=== PATIENT | male | born 1995 | race Caucasian/White ===

== ENCOUNTER 2019-01-24 08:12 | Emergency (ER) | payer OTHER ==
[~2019-01-24] VITALS: Ht 188 cm; Wt 111.3 kg
[2019-01-24] MEDS ORDERED: GI COCKTAIL 50ML BTL(HYOSCYAMINE/MAALOX/LIDOCAINE VISCOUS)(1:3:1) PO ONE (09:15)
[2019-01-24 09:43] LABS: BASO # 0.1 10^3/uL (0.0-0.2); BASO % 1.4 % (0.0-1.0); EOS # 0.1 10^3/uL (0.0-0.5); EOS % 2.4 % (0.0-3.0); HEMATOCRIT 49.5 % (42.0-52.0); HEMOGLOBIN 16.5 g/dl (13.5-17.5); LYMPH # 1.6 10^3/uL (1.5-5.0); LYMPH % 27.1 % (24.0-44.0); MEAN CORPUSCULAR HEMOGLOBIN 30.3 pg (27.0-33.0); MEAN CORPUSCULAR HGB CONC 33.3 g/dl (32.0-36.5); MEAN CORPUSCULAR VOLUME 90.8 fl (80.0-96.0); MONO # 0.7 10^3/uL (0.0-0.8); MONO % 11.6 % (0.0-5.0); NEUTROPHILS # 3.3 10^3/uL (1.5-8.5); NEUTROPHILS % 57.2 % (36.0-66.0); PLATELET COUNT, AUTOMATED 249 10^3/uL (150-450); RED BLOOD COUNT 5.45 10^6/uL (4.30-6.10); WHITE BLOOD COUNT 5.8 10^3/uL (4.0-10.0)
[2019-01-24 10:12] LABS: ALBUMIN 4.2 GM/DL (3.2-5.2); ALT/SGPT 29 U/L (12-78); AMYLASE 49 U/L (25-115); BILIRUBIN,DIRECT 0.2 MG/DL (0.0-0.2); BILIRUBIN,TOTAL 0.9 MG/DL (0.2-1.0); BLOOD UREA NITROGEN 11 MG/DL (7-18); CALCIUM LEVEL 8.7 MG/DL (8.5-10.1); CARBON DIOXIDE LEVEL 27 MEQ/L (21-32); CHLORIDE LEVEL 105 MEQ/L (98-107); CREATININE FOR GFR 1.06 MG/DL (0.70-1.30); GLOMERULAR FILTRATION RATE > 60.0 (>60); GLUCOSE, FASTING 90 MG/DL (70-100); LIPASE 148 U/L (73-393); POTASSIUM SERUM 4.4 MEQ/L (3.5-5.1); SODIUM LEVEL 138 MEQ/L (136-145); TOTAL PROTEIN 7.5 GM/DL (6.4-8.2)
[2019-01-24] MEDS ORDERED: KETOROLAC 30 MG/ML VIAL (J1885) IV ONE (11:15)
--- NOTE | 2019-01-24 11:54 | REP ---
Acute abdominal series three views including PA chest and supine upright abdomen: There are no comparisons. PA chest: The lung greenberg are clear. The cardiac size is normal. The adriana, mediastinum, and skeletal structures are unremarkable. There is no free subdiaphragmatic air. Impression: Negative PA chest. Supine upright abdomen: The bowel gas pattern is normal. There are no calcifications. The skeletal structures and soft tissues otherwise are unremarkable. Impression: Normal bowel gas pattern. Electronically Signed by Hans Jefferson MD 01/24/2019 11:45 A
[2019-01-24] MEDS ORDERED: PROT1TAB2 PO (11:58)
[2019-01-24] MEDS ORDERED: CARA1TAB6 PO (11:58)
[2019-01-24] MEDS ORDERED: PANTOPRAZOLE 40MG TAB (PROTONIX) PO ONE (12:00)
--- NOTE | 2019-01-24 12:24 | REP ---
RIGHT UPPER QUADRANT ULTRASOUND: Real-time sonographic evaluation of the right upper quadrant performed. Gallbladder demonstrates no evidence of intraluminal sludge or calculi, wall thickening or pericholecystic fluid. There is no intrahepatic or extrahepatic biliary dilatation, common bile duct measuring 3 mm. Liver and pancreas demonstrate no gross mass. Pancreas is not optimally seen due to overlying bowel gas. Right kidney demonstrates no hydronephrosis with normal size 12.2 cm in length. IMPRESSION: Essentially negative right upper quadrant ultrasound. Electronically Signed by Hans Perez MD 01/25/2019 09:21 A
[2019-01-24 12:36] VITALS: BP 129/76
== END 2019-01-24 12:59 | disposition home or self-care (01) ==
LOC: M ED 08:12
DX: K52.9 Noninfective gastroenteritis and colitis, unspecified (principal)
CPT/HCPCS: 74021; 76705; 80048; 80076; 82150; 83690; 85025; 96374; 99284; J1885

== ENCOUNTER 2019-05-01 09:50 | Emergency (ER) | payer OTHER ==
[~2019-05-01] VITALS: Ht 188 cm; Wt 113.6 kg
[~2019-05-01 09:50] MED LIST: CARA1TAB6 PO; PROT1TAB2 PO
--- NOTE | 2019-05-01 12:08 | REP ---
SCROTAL ULTRASOUND: Real-time sonographic evaluation of the scrotum and contents performed. The testicles are normal in size and echotexture, right testicle measuring 5.4 x 2.7 x 3.1 cm and left testicle 5.4 x 2.4 x 3.3 cm. There is no suspicious testicular mass. Complex cyst in the upper aspect of the right testicle is of doubtful significance measuring 2 x 4 x 2 mm. There is no torsion bilaterally, resistive index right testicle 0.53 and left testicle 0.57. There are no other significant abnormalities. The epididymis is unremarkable bilaterally with an apparent 1 mm cyst in the head of the left epididymis. IMPRESSION: No suspicious testicular mass and no testicular torsion. 4 mm complex cyst right testicle. Electronically Signed by Hans Perez MD 05/01/2019 05:37 P
[2019-05-01] MEDS ORDERED: cefTRIAXone SOD 250 MG VIAL (J0696) IM ONE (12:45)
[2019-05-01] MEDS ORDERED: LIDOCAINE 1% SDV 5 ML VIAL DILUENT ONE (12:45)
[2019-05-01] MEDS ORDERED: AZITHROMYCIN 250 MG TAB PO ONE (12:45)
[2019-05-01 12:52] LABS: CHLAMYDIA DNA AMPLIFICATION NEGATIVE (NEGATIVE); GC DNA AMPLIFICATION NEGATIVE (NEGATIVE)
[2019-05-01 13:08] VITALS: BP 142/63
== END 2019-05-01 13:10 | disposition home or self-care (01) ==
LOC: M ED 09:50
DX: N34.1 Nonspecific urethritis (principal); N44.2 Benign cyst of testis
CPT/HCPCS: 76870; 81001; 87661; 93976; 96372; 99283; J0696

== ENCOUNTER 2019-08-03 00:12 | Inpatient (IN) | payer OTHER ==
[2019-08-03] VITALS (9 sets, daily range): BP systolic 130–156; BP diastolic 63–81
[~2019-08-03] VITALS: Ht 188 cm; Wt 129.5 kg
[2019-08-03 00:27] LABS: BASO # 0.1 10^3/uL (0.0-0.2); BASO % 0.8 % (0.0-1.0); EOS # 0.1 10^3/uL (0.0-0.5); EOS % 1.1 % (0.0-3.0); HEMATOCRIT 44.2 % (42.0-52.0); HEMOGLOBIN 15.1 g/dl (13.5-17.5); LYMPH # 3.5 10^3/uL (1.5-5.0); LYMPH % 47.8 % (24.0-44.0); MEAN CORPUSCULAR HEMOGLOBIN 29.8 pg (27.0-33.0); MEAN CORPUSCULAR HGB CONC 34.2 g/dl (32.0-36.5); MEAN CORPUSCULAR VOLUME 87.4 fl (80.0-96.0); MONO # 0.5 10^3/uL (0.0-0.8); MONO % 6.5 % (0.0-5.0); NEUTROPHILS # 3.2 10^3/uL (1.5-8.5); NEUTROPHILS % 43.7 % (36.0-66.0); PLATELET COUNT, AUTOMATED 259 10^3/uL (150-450); RED BLOOD COUNT 5.06 10^6/uL (4.30-6.10); WHITE BLOOD COUNT 7.4 10^3/uL (4.0-10.0)
[2019-08-03] MEDS ORDERED: ceFAZolin 1GM VIAL (J0690 PER 500MG) As Ordered ONE (00:28)
[2019-08-03] MEDS ORDERED: ceFAZolin SOD 2 GM in IV 1 EA IV ONE (00:30)
[2019-08-03 00:37] LABS: INR 1.03; PROTHROMBIN TIME 13.2 SECONDS (11.8-14.0)
[2019-08-03 00:38] LABS: PARTIAL THROMBOPLASTIN TIME 25.4 SECONDS (25.0-38.4)
[2019-08-03] MEDS ORDERED: ISOVUE-370 76% 100ML VIAL As Ordered ONE (00:41)
[2019-08-03 00:46] LABS: ALT/SGPT 29 U/L (12-78); AMYLASE 39 U/L (25-115); BILIRUBIN,DIRECT 0.2 MG/DL (0.0-0.2); BILIRUBIN,TOTAL 0.4 MG/DL (0.2-1.0); BLOOD UREA NITROGEN 13 MG/DL (7-18); CALCIUM LEVEL 8.3 MG/DL (8.5-10.1); CARBON DIOXIDE LEVEL 26 MEQ/L (21-32); CHLORIDE LEVEL 107 MEQ/L (98-107); CK-MB VALUE MASS 2.4 NG/ML (<3.6); CPK CREATINE PHOSPHOKINASE 225 U/L (39-308); CREATININE FOR GFR 1.25 MG/DL (0.70-1.30); ETHYL ALCOHOL (ETHANOL) 0.212 % (0.000-0.010); GLOMERULAR FILTRATION RATE > 60.0 (>60); GLUCOSE, FASTING 109 MG/DL (70-100); LIPASE 84 U/L (73-393); MB/CK RELATIVE INDEX 1.07 (< OR =4); POTASSIUM SERUM 3.8 MEQ/L (3.5-5.1); SODIUM LEVEL 141 MEQ/L (136-145); TOTAL PROTEIN 7.2 GM/DL (6.4-8.2); TROPONIN I < 0.02 NG/ML (< 0.10)
[2019-08-03] MEDS ORDERED: fentaNYL 100 MCG/2 ML INJECTION (J3010) As Ordered ONE ×2 (01:09→02:16)
[2019-08-03] MEDS ORDERED: MIDAZOLAM INJ 2MG/2ML VIAL (J2250 PER 1MG) As Ordered ONE (01:09)
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
[2019-08-03] MEDS ORDERED: LIDOCAINE 2% 100MG/5ML SDV (FOR ANES.) As Ordered ONE (01:11)
[2019-08-03] MEDS ORDERED: VASOPRESSIN INJ 20 UNITS/ML VIAL As Ordered ONE (01:35)
[2019-08-03] MEDS ORDERED: ROCURONIUM BROMIDE 50 MG/5 ML VIAL As Ordered ONE (01:39)
[2019-08-03] MEDS ORDERED: propofoL 200 MG/20 ML VIAL As Ordered ONE (01:40)
[2019-08-03] MEDS ORDERED: CALCIUM CHLORIDE 10% 1 GM/10 ML SYR As Ordered ONE (01:40)
[2019-08-03] MEDS ORDERED: SUCCINYLCHOLINE 100 MG/5 ML SYRINGE (J0330) As Ordered ONE (01:40)
[2019-08-03] MEDS ORDERED: ePHEDrine SULFATE 25 MG/5 ML(5MG/ML) SYRINGE As Ordered ONE (01:59)
[2019-08-03] MEDS ORDERED: PHENYLephrine HCL 500 MCG/5 ML (100MCG/ML) SYRINGE (J2370) As Ordered ONE (01:59)
[2019-08-03] MEDS ORDERED: ACETAMINOPHEN 1000MG 100ML IV BTL (OFIRMEV) (J0131 PER 10MG) As Ordered ONE (02:09)
[2019-08-03] MEDS ORDERED: ONDANSETRON 4MG/2ML VIAL As Ordered ONE (02:11)
[2019-08-03] MEDS ORDERED: KETOROLAC 60 MG/2 ML VIAL As Ordered ONE (02:11)
[2019-08-03] MEDS ORDERED: dexameTHASONE 4 MG/ML 1ML VIAL (J1100 PER 1MG) As Ordered ONE (02:11)
[2019-08-03] MEDS ORDERED: oxyCODONE 5MG TAB PO PRN (02:15)
[2019-08-03] MEDS ORDERED: ONDANSETRON 4MG/2ML VIAL IV PRN ×2 (02:15→02:30)
[2019-08-03] MEDS ORDERED: LR 1,000 ML IV SCH (02:15)
[2019-08-03] MEDS ORDERED: fentaNYL 100 MCG/2 ML INJECTION (J3010) IV PRN (02:15)
[2019-08-03] MEDS ORDERED: SUGAMMADEX SODIUM 500 MG/5 ML VIAL (BRIDION) As Ordered ONE (02:17)
[2019-08-03] MEDS ORDERED: D5W/LR 1,000 ML IV SCH (02:22)
[2019-08-03] MEDS ORDERED: NORCO, ANEXSIA 5/325MG TABLET (HYDROcodone/ACETAMINOPHEN) PO PRN ×2 (02:30)
[2019-08-03] MEDS ORDERED: ACETAMINOPHEN TAB 650MG DOSE (2X325MG) PO PRN (02:30)
[2019-08-03] MEDS ORDERED: MORPHINE 2 MG/ML 1ML VIAL (J2270) IV PRN (02:30)
[2019-08-03] MEDS ORDERED: oxyCODONE 5MG TAB As Ordered ONE (03:35)
[2019-08-03] MEDS ORDERED: HYDROMORPHONE HCL 0.5 MG/ 0.5 ML SYRINGE (J1170 PER 1) As Ordered ONE (03:35)
[2019-08-03] MEDS: HYDROMORPHONE HCL 0.5 MG/ 0.5 ML SYRINGE (J1170 PER 1) IV PRN ×2 (03:38→03:44)
[2019-08-03 03:59] LABS: HEMATOCRIT 39.1 % (42.0-52.0); HEMOGLOBIN 13.2 g/dl (13.5-17.5); MEAN CORPUSCULAR HEMOGLOBIN 30.1 pg (27.0-33.0); MEAN CORPUSCULAR HGB CONC 33.8 g/dl (32.0-36.5); MEAN CORPUSCULAR VOLUME 89.1 fl (80.0-96.0); PLATELET COUNT, AUTOMATED 180 10^3/uL (150-450); RED BLOOD COUNT 4.39 10^6/uL (4.30-6.10); WHITE BLOOD COUNT 9.1 10^3/uL (4.0-10.0)
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
[2019-08-03] MEDS: PANTOPRAZOLE 40MG TAB (PROTONIX) PO SCH (09:12)
[2019-08-03] MEDS: KETOROLAC 30 MG/ML 1ML VIAL IV SCH ×3 (09:12→20:39)
[2019-08-03] MEDS: ceFAZolin SOD 1 GM in D5W MINI-BAG PLUS 50 ML IV SCH ×2 (09:13→17:23)
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
--- NOTE | 2019-08-03 13:03 | IPN ---
DATE: 08/03/2019 The patient was operated on in the middle of the night and has been doing well, has been stable hemodynamically as well as from an intake and output standpoint, and hematocrit was down a little bit this morning but overall seems to be doing quite well. He is still uncomfortable when he gets up and moves around, but otherwise has been tolerating a regular diet and no other complaints. His abdomen is soft. His flank area is clean and dry. IMPRESSION/PLAN: The patient is status post laceration. I do feel that we need to have him get up and move around a little bit more over the day. Will probably get him out of the hospital tomorrow with some oral pain medication and we will have him take it easy for the next couple weeks. I anticipate, given that this was not specifically involving muscle, that he should be able to return to normal activity sooner than if it had, had specifically gone through the muscle, but given that it was quite deep it still will take a him a little while to get over this. In any case, the patient understands our current plan and will try get up and move around a little bit more today.
[2019-08-03] MEDS: MORPHINE 4 MG/ML 1ML VIAL/SYRINGE (J2270) IV PRN ×2 (13:11→20:43)
[2019-08-04] MEDS: ceFAZolin SOD 1 GM in D5W MINI-BAG PLUS 50 ML IV SCH ×2 (01:46→08:58)
[2019-08-04 02:00] VITALS: BP 125/83
[2019-08-04] MEDS: KETOROLAC 30 MG/ML 1ML VIAL IV SCH ×2 (02:15→08:58)
[2019-08-04 06:00] VITALS: BP 118/57
[2019-08-04] MEDS: PANTOPRAZOLE 40MG TAB (PROTONIX) PO SCH (08:58)
[2019-08-04 10:00] VITALS: BP 134/70
[2019-08-04] MEDS ORDERED: HYDR-3715 PO (10:00)
[2019-08-04] MEDS ORDERED: IBUP-1022 PO (10:00)
[2019-08-14] MEDS ORDERED: ULTR50TA8 PO (20:07)
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
== END 2019-08-04 12:10 | disposition home or self-care (01) | DRG 581 ==
LOC: EDBD 00:12 → M ED 00:12 → ENRESERV 01:40 → M ED INP 02:22 → ENRESERVDT 02:50 → ENRESERVTM 02:50 → M MSPAV 03:57
PROVIDERS: ADMIT Surgery; ATTEND Surgery
PROC: 0JQ70ZZ Repair Back Subcutaneous Tissue and Fascia, Open Approach (ICD-10-PCS; 2019-08-03)
PROC: 0JQ80ZZ Repair Abdomen Subcutaneous Tissue and Fascia, Open Approach (ICD-10-PCS; principal; 2019-08-03 01:00)
DX: S31.119A Laceration without foreign body of abdominal wall, unspecified quadrant without penetration into peritoneal cavity, initial encounter (principal); S31.010A Laceration without foreign body of lower back and pelvis without penetration into retroperitoneum, initial encounter; X99.1XXA Assault by knife, initial encounter; Y92.9 Unspecified place or not applicable

== ENCOUNTER 2020-02-24 21:51 | Inpatient (IN) | payer OTHER ==
[~2020-02-24] VITALS: Ht 188 cm; Wt 129.7 kg
[~2020-02-24 21:51] MED LIST changes: +CETI-24 PO; +FLON1SPR; +HYDR-3715 PO; +IBUP-1022 PO; +MUCI600T31 PO; +ULTR50TA8 PO; +VITACHTA PO
[2020-02-24] MEDS ORDERED: ZOLO25TA PO (22:03)
[2020-02-24] MEDS ORDERED: PANTOPRAZOLE 40MG VIAL (C9113 PER 1) IV ONE (22:30)
[2020-02-24] MEDS ORDERED: NS 1,000 ML IV ONE (22:30)
[2020-02-24 22:33] LABS: BASO # 0.1 10^3/uL (0.0-0.2); BASO % 1.3 % (0.0-1.0); EOS % 0.3 % (0.0-3.0); HEMATOCRIT 46.4 % (42.0-52.0); HEMOGLOBIN 15.4 g/dl (13.5-17.5); LYMPH % 26.3 % (24.0-44.0); MEAN CORPUSCULAR HEMOGLOBIN 27.9 pg (27.0-33.0); MEAN CORPUSCULAR HGB CONC 33.2 g/dl (32.0-36.5); MEAN CORPUSCULAR VOLUME 84.1 fl (80.0-96.0); MONO # 0.7 10^3/uL (0.0-0.8); MONO % 8.8 % (0.0-5.0); NEUTROPHILS # 4.7 10^3/uL (1.5-8.5); NEUTROPHILS % 63.2 % (36.0-66.0); PLATELET COUNT, AUTOMATED 361 10^3/uL (150-450); RED BLOOD COUNT 5.52 10^6/uL (4.30-6.10); WHITE BLOOD COUNT 7.5 10^3/uL (4.0-10.0)
[2020-02-24 22:43] LABS: INR 0.99; PROTHROMBIN TIME 13.3 SECONDS (12.5-14.3)
[2020-02-24 22:44] LABS: PARTIAL THROMBOPLASTIN TIME 26.7 SECONDS (24.2-38.5)
[2020-02-24] MEDS ORDERED: ISOVUE-370 76% 100ML VIAL As Ordered ONE (22:49)
[2020-02-24 22:57] LABS: ALT/SGPT 57 U/L (12-78); BILIRUBIN,DIRECT 0.1 MG/DL (0.0-0.2); BILIRUBIN,TOTAL 0.3 MG/DL (0.2-1.0); CK-MB VALUE MASS 1.9 NG/ML (<3.6); CPK CREATINE PHOSPHOKINASE 266 U/L (39-308); ETHYL ALCOHOL (ETHANOL) 0.095 % (0.000-0.010); LIPASE 67 U/L (73-393); MB/CK RELATIVE INDEX 0.71 (< OR =4); TOTAL PROTEIN 7.2 GM/DL (6.4-8.2); TROPONIN I < 0.02 NG/ML (< 0.10)
--- NOTE | 2020-02-24 23:35 | REPVR ---
PROCEDURE INFORMATION: Exam: CT Abdomen And Pelvis With Contrast Exam date and time: 02/24/2020 11:09 PM Age: 24 years old Clinical indication: Abdominal pain; Localized; Right upper quadrant (ruq); Additional info: Ruq abd pain TECHNIQUE: Imaging protocol: Computed tomography of the abdomen and pelvis with intravenous contrast. Axial, coronal and sagittal reformatted images were created and reviewed. Radiation optimization: All CT scans at this facility use at least one of these dose optimization techniques: automated exposure control; mA and/or kV adjustment per patient size (includes targeted exams where dose is matched to clinical indication); or iterative reconstruction. Contrast material: ISOVUE 370; Contrast volume: 100 ml; Contrast route: INTRAVENOUS (IV); COMPARISON: CT ABD/PEL W/IV CONTRAST ONLY 08/03/2019 12:47 AM FINDINGS: Liver: Mild hepatomegaly. Diffuse hepatic steatosis. Gallbladder and bile ducts: No radiodense gallstones. No biliary ductal dilatation. Pancreas: Unremarkable. Spleen: Unremarkable. Adrenal glands: Normal. No mass. Kidneys and ureters: No mass. No radiodense calculi. No hydronephrosis. Stomach and bowel: Submucosal fat deposition in the colon, suggestive of chronic inflammation. No convincing bowel wall thickening. No obstruction. No pneumatosis. Appendix: Normal. Intraperitoneal space: No free fluid. No organized fluid collection. No free air. Vasculature: Unremarkable. No aneurysm. Lymph nodes: No pathologically enlarged lymph nodes. Urinary bladder: Unremarkable as visualized. Reproductive: Unremarkable. Bones/joints: No acute osseous abnormality. Soft tissues: Small, fat containing umbilical hernia. IMPRESSION: 1. No CT evidence of acute intra-abdominal or pelvic pathology. 2. Additional findings, as above. Electronically signed by: Sotero Ta On 02/24/2020 23:35:22 PM
[2020-02-24] MEDS ORDERED: NS 2,000 ML in IV 1 EA IV ONE (23:45)
--- NOTE | 2020-02-25 01:06 | ECGEPIP ---
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
[2020-02-25] MEDS ORDERED: GI COCKTAIL 50ML BTL(HYOSCYAMINE/MAALOX/LIDOCAINE VISCOUS)(1:3:1) PO ONE (01:15)
[2020-02-25 03:05] LABS: ACETAMINOPHEN LEVEL < 2.0 UG/ML (10.0-30.0); SALICYLATE LEVEL < 1.7 MG/DL (5.0-30.0)
[2020-02-25 03:16] LABS: AMPHETAMINES LEVEL URINE NEGATIVE (NEGATIVE); BARBITURATES URINE NEGATIVE (NEGATIVE); BENZODIAZEPINES URINE NEGATIVE (NEGATIVE); CANNABINOIDS URINE NEGATIVE (NEGATIVE); COCAINE METABOLITE URINE NEGATIVE (NEGATIVE); METHADONE URINE NEGATIVE (NEGATIVE); OPIATES URINE NEGATIVE (NEGATIVE); PHENCYCLIDINE URINE NEGATIVE (NEGATIVE)
[2020-02-25] MEDS ORDERED: OLANZapine ORAL DISINTEGRATING TAB 5MG PO PRN (04:15)
[2020-02-25] MEDS ORDERED: MAALOX 30 ML SUSP *UDC PO PRN (04:15)
[2020-02-25] MEDS ORDERED: MOM 30ML SUSPENSION UDC PO PRN (04:15)
[2020-02-25] MEDS ORDERED: ACETAMINOPHEN TAB 650MG DOSE (2X325MG) PO PRN (04:15)
[2020-02-25] MEDS ORDERED: hydrOXYzine 50 MG TAB PO PRN (12:15)
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
[2020-02-25] MEDS ORDERED: SERTRALINE HCL 25 MG TABLET PO ONE (13:00)
[2020-02-25] MEDS ORDERED: PANTOPRAZOLE 40MG TAB (PROTONIX) PO ONE (13:15)
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
[2020-02-25 16:31] VITALS: BP 141/84
[2020-02-25] MEDS: PRAZOSIN 1 MG CAP PO SCH (21:49)
[2020-02-25] MEDS: traZODone 50 MG TAB PO PRN (21:49)
[2020-02-26 07:18] VITALS: BP 158/94
[2020-02-26] MEDS ORDERED: PANTOPRAZOLE 40MG TAB (PROTONIX) PO SCH (09:00)
[2020-02-26] MEDS ORDERED: SERTRALINE HCL 25 MG TABLET PO SCH (09:00)
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
[2020-02-26 16:44] VITALS: BP 150/77
[2020-02-26] MEDS: traZODone 50 MG TAB PO PRN (22:17)
[2020-02-26 22:18] VITALS: BP 150/77
[2020-02-26] MEDS: PRAZOSIN 1 MG CAP PO SCH (22:18)
[2020-02-27 06:44] VITALS: BP 137/66
[2020-02-27] MEDS ORDERED: SERTRALINE HCL 50 MG TAB PO SCH (09:00)
[2020-02-27] MEDS ORDERED: PANT40TA29 PO (11:01)
[2020-02-27] MEDS ORDERED: SERT50TA29 PO (11:01)
[2020-02-27] MEDS ORDERED: PRAZ2CAP PO (11:01)
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
[2020-02-28] MEDS ORDERED: PROT1TAB2 PO (11:37)
[2020-02-28] MEDS ORDERED: PRAZ2CAP40 PO (11:37)
[2020-02-28] MEDS ORDERED: SERT-141 PO (11:37)
== END 2020-02-27 11:28 | disposition home or self-care (01) | DRG 885 ==
LOC: M ED 21:51 → M ED INP 02-25 04:14 → M PSY 02-25 05:16
PROVIDERS: ADMIT Psychiatry & Neurology Psychiatry; ATTEND Psychiatry & Neurology Psychiatry
DX: F33.0 Major depressive disorder, recurrent, mild (principal); R45.851 Suicidal ideations; F17.200 Nicotine dependence, unspecified, uncomplicated; F41.1 Generalized anxiety disorder; F43.10 Post-traumatic stress disorder, unspecified; E66.9 Obesity, unspecified

== ENCOUNTER 2020-12-02 12:14 | Inpatient (IN) | payer OTHER ==
[~2020-12-02] VITALS: Ht 190.5 cm; Wt 116.8 kg
[~2020-12-02 12:14] MED LIST changes: +FOLIC ACID 1 MG TAB PO SCH; +MULTIVITAMINS/MINERALS THERAP 1 TAB PO SCH; +PANT40TA29 PO; +PRAZ2CAP PO; +PRAZ2CAP40 PO; +SERT-141 PO; +SERT50TA29 PO; +THIAMINE 100 MG TAB PO SCH; +ZOLO25TA PO
[2020-12-02] MEDS ORDERED: LORazepam 2 MG TAB PO PRN ×2 (13:05→20:15)
[2020-12-02] MEDS ORDERED: NS 1,000 ML IV ONE ×2 (13:05→15:10)
[2020-12-02] MEDS ORDERED: LORazepam 2 MG/ML VIAL IV STA (13:05)
[2020-12-02 13:58] LABS: HEMATOCRIT 49.5 % (42.0-52.0); HEMOGLOBIN 16.8 g/dl (13.5-17.5); MEAN CORPUSCULAR HEMOGLOBIN 29.7 pg (27.0-33.0); MEAN CORPUSCULAR HGB CONC 33.9 g/dl (32.0-36.5); MEAN CORPUSCULAR VOLUME 87.5 fl (80.0-96.0); PLATELET COUNT, AUTOMATED 356 10^3/uL (150-450); RED BLOOD COUNT 5.66 10^6/uL (4.30-6.10); WHITE BLOOD COUNT 7.5 10^3/uL (4.0-10.0)
[2020-12-02 14:34] LABS: ALBUMIN 4.4 GM/DL (3.2-5.2); ALT/SGPT 82 U/L (12-78); BILIRUBIN,DIRECT 0.2 MG/DL (0.0-0.2); BILIRUBIN,TOTAL 0.7 MG/DL (0.2-1.0); BLOOD UREA NITROGEN 10 MG/DL (7-18); CALCIUM LEVEL 9.2 MG/DL (8.5-10.1); CARBON DIOXIDE LEVEL 20 MEQ/L (21-32); CHLORIDE LEVEL 103 MEQ/L (98-107); CREATININE FOR GFR 1.17 MG/DL (0.70-1.30); ETHYL ALCOHOL (ETHANOL) 0.134 % (0.000-0.010); GLOMERULAR FILTRATION RATE > 60.0 (>60); GLUCOSE, FASTING 92 MG/DL (70-100); POTASSIUM SERUM 4.2 MEQ/L (3.5-5.1); SALICYLATE LEVEL 2.1 MG/DL (5.0-30.0); SODIUM LEVEL 137 MEQ/L (136-145); THYROID STIMULATING HORMONE 0.667 uIU/ML (0.358-3.740); TOTAL PROTEIN 7.5 GM/DL (6.4-8.2)
[2020-12-02 14:35] LABS: ACETAMINOPHEN LEVEL < 2.0 UG/ML (10.0-30.0)
[2020-12-02 14:57] LABS: AMPHETAMINES LEVEL URINE NEGATIVE (NEGATIVE); BARBITURATES URINE NEGATIVE (NEGATIVE); BENZODIAZEPINES URINE NEGATIVE (NEGATIVE); CANNABINOIDS URINE POSITIVE (NEGATIVE); COCAINE METABOLITE URINE NEGATIVE (NEGATIVE); METHADONE URINE NEGATIVE (NEGATIVE); OPIATES URINE NEGATIVE (NEGATIVE); PHENCYCLIDINE URINE NEGATIVE (NEGATIVE)
[2020-12-02] MEDS ORDERED: GI COCKTAIL 50ML BTL(HYOSCYAMINE/MAALOX/LIDOCAINE VISCOUS)(1:3:1) PO ONE (16:05)
[2020-12-02 20:02] LABS: RSV AMPLIFICATION NEGATIVE (NEGATIVE)
[2020-12-02] MEDS ORDERED: ACETAMINOPHEN TAB 650MG DOSE (2X325MG) PO PRN (20:15)
[2020-12-02] MEDS ORDERED: MOM 30ML SUSPENSION UDC PO PRN (20:15)
[2020-12-02] MEDS ORDERED: traZODone 50 MG TAB PO PRN (20:15)
[2020-12-02] MEDS ORDERED: MAALOX 30 ML SUSP *UDC PO PRN (20:15)
--- NOTE | 2020-12-02 20:30 | ECGEPIP ---
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
[2020-12-02] MEDS ORDERED: ZZZQ50LI PO (20:35)
[2020-12-02] MEDS ORDERED: HOME MED LIST COMPLETE! XX SCH (20:40)
[2020-12-02 22:19] VITALS: BP 158/86
[2020-12-02 23:18] VITALS: BP 158/86
[2020-12-02] MEDS: THIAMINE 100 MG TAB PO SCH (23:29)
[2020-12-03 07:10] VITALS: BP 141/85
[2020-12-03 07:12] VITALS: BP 141/85
[2020-12-03] MEDS: MULTIVITAMINS/MINERALS THERAP 1 TAB PO SCH (09:31)
[2020-12-03] MEDS: THIAMINE 100 MG TAB PO SCH ×2 (09:31→22:00)
[2020-12-03] MEDS: FOLIC ACID 1 MG TAB PO SCH (09:31)
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
--- NOTE | 2020-12-03 11:21 | HPEPDOC ---
[facility] Medical History & Physical Date of Admission Dec 02, 2020 Date of Service: Dec 03, 2020 Other Provider William Joyner DO, hospitalist consult Attending Physician: ARLEN RICHEY NP History and Physical CHIEF COMPLAINT: Suicidal ideation HISTORY OF PRESENT ILLNESS: Patient is a 25-year-old male who presented to the emergency department with heavy alcohol use as well as suicidal ideations. Patient states he has been having some difficulty with his family and has been drinking heavily. Patient states that he was drinking 6 or 7 25 ounce cans of beer at 8% alcohol by volume for the past few weeks. Patient states that he tried to stop drinking but became very shaky and sweaty so he began drinking again. Patient was also taking a lot of aspirin in order to help with headaches and belly pain which caused him to be vomiting. Patient states he has not vomited last few days. Patient states his last drink was about 7 AM on 12/02/2020. Patient says he called the suicide hotline because he was having thoughts of harming himself and they instructed him to come into the emergency department for further evaluation. Patient was evaluated and was admitted into the inpatient mental health unit. Hospitalist were consulted for medical examination. Patient states that the diarrhea is still present but he is not having any vomiting at this time. Patient is otherwise feeling well but is still having some shakiness. PAST MEDICAL HISTORY: 1. Obesity. 2. Gastritis. PAST SURGICAL HISTORY: 1. 20 sutures placed for a laceration on the right lower back SOCIAL HISTORY: Cut down from smoking a pack a day to using either a vape pen or a few nicotine lozenges. Heavily drinking alcohol over the past few weeks as above. Uses CBD cream but no other illicit drug use. FAMILY HISTORY: CHF and diabetes run in the family. Patient says his mother of CHF. ALLERGIES: Please see below. REVIEW OF SYSTEMS: General: Patient denies fevers HEENT: Patient denies headaches Cardiovascular: Patient denies chest pain Respiratory: Patient denies shortness of breath, cough GI: Patient reports some mild right upper quadrant abdominal pain and diarrhea but denies any nausea or vomiting : Patient denies increased frequency or pain with urination Extremities: Patient denies swelling or pain in extremities Neurological: Patient denies numbness or tingling in legs Skin: Patient denies any new rashes or lesions. Hematologic: Patient denies any easy bruising. Lymphatic: Patient denies any lumps lumps or bumps in neck, axilla, or groin HOME MEDICATIONS: Please see below. PHYSICAL EXAMINATION: VITAL SIGNS: Temperature 98.6, pulse 58, respiratory rate 20, blood pressure 141/85, pulse oximetry 95% on room air. General: Alert and oriented male patient who was laying in bed when I walked in. Patient was able to get up and walk into the examination room without any difficulty. Patient's shirt did have a little bit of sweat on it. Patient did have some fidgeting while sitting in the chair. Patient was otherwise in no acute distress. HEENT: Normocephalic, atraumatic, moist mucous membranes. Neck: No lymphadenopathy or thyromegaly Cardiac: Regular rate and rhythm, no murmurs, normal S1, normal S2 Pulm: Clear to auscultation bilaterally. No wheezes, rhonchi, rales Abd: Nondistended, mild tenderness in the right upper quadrant, no rebound tenderness, normal bowel sounds Ext: No edema bilateral lower extremities Neuro: Patient was able to move all 4 extremities on command. Patient reported equal sensation light touch in upper and lower extremities. Skin: Skin of the head, neck, back, upper and lower extremities examined did not show any rashes or wounds. Psych: Patient denies any suicidal or homicidal ideations at this time. LABORATORY DATA: See below. IMAGING: No imaging has been performed MICROBIOLOGY: Please see below. ASSESSMENT: 25-year-old male who presented to the emergency department with suicidal ideations who had been drinking alcohol heavily over the past few weeks who was admitted to the inpatient mental health unit. . PLAN: 1. Unspecified depressive disorder. Continue management per psychiatry. 2. Binge drinking. Patient is a little more than 24 hours past his last drink. Patient will need to be on the CIWA protocol and monitor closely. Patient is fidgety during examination today. I did advise nursing staff that he may need to be medicated with Ativan based on the CIWA protocol. Patient will need to be monitored closely over the next 24 to 72 hours for signs of worsening alcohol withdrawal. 3. Transaminitis. Patient was drinking heavily prior to coming in. Repeat CMP can be performed tomorrow morning to monitor for improvement. 4. DVT prophylaxis: Not indicated 5. CODE STATUS: Full code Disposition. Patient will continue treatment per psychiatry. Please reconsult hospitalist if the need arises. Vital Signs Vital Signs Date Time Temp Pulse Resp B/P (MAP) Pulse Ox O2 Delivery O2 Flow Rate FiO2 12/03/20 07:12 98.6 58 20 141/85 (103) 95 Room Air Laboratory Data Labs 24H Laboratory Tests 2 12/02/20 13:40: Nucleated Red Blood Cells % (auto) 0.0, Anion Gap 14, Glomerular Filtration Rate > 60.0, Calcium Level 9.2, Total Bilirubin 0.7, Direct Bilirubin 0.2, Aspartate Amino Transf (AST/SGOT) 38H, Alanine Aminotransferase (ALT/SGPT) 82H, Alkaline Phosphatase 119H, Total Protein 7.5, Albumin 4.4, Albumin/Globulin Ratio 1.4, Thyroid Stimulating Hormone (TSH) 0.667, Salicylates Level 2.1L, Urine Opiates Screen NEGATIVE, Urine Methadone Screen NEGATIVE, Acetaminophen Level < 2.0L, Urine Barbiturates Screen NEGATIVE, Urine Phencyclidine Screen NEGATIVE, Urine Amphetamines Screen NEGATIVE, Urine Benzodiazepines Screen NEGATIVE, Urine Cocaine Metabolite Screen NEGATIVE, Urine Cannabinoids Screen POSITIVEH, Ethyl Alcohol Level 0.134H 12/02/20 19:01: Coronavirus (COVID-19)(PCR) NEGATIVE, Influenza Type A (RT-PCR) NEGATIVE, Influenza Type B (RT-PCR) NEGATIVE, Respiratory Syncytial Virus (PCR) NEGATIVE CBC/BMP Laboratory Tests 12/02/20 13:40 Home Medications Scheduled PRN Diphenhydramine HCl (Zzzquil) 50 Mg/30 Ml Liquid, 50 MG PO QHS PRN for SLEEP Allergies Coded Allergies: No Known Allergies (Unverified , 01/24/19) A-FIB/CHADSVASC A-FIB History Current/History of A-Fib/PAF?: No WILLIAM JOYNER DO Dec 03, 2020 11:21
[2020-12-03] MEDS: NICOTINE 7 MG/24 HR TRANSDERMAL TD SCH (14:56)
[2020-12-03 15:00] VITALS: BP 140/84
[2020-12-03] MEDS ORDERED: SERTRALINE HCL 25 MG TABLET PO ONE (15:40)
[2020-12-03 18:28] VITALS: BP 160/88
[2020-12-03 21:57] VITALS: BP 164/95
[2020-12-04 06:10] VITALS: BP 127/65
[2020-12-04] MEDS ORDERED: SERTRALINE HCL 50 MG TAB PO SCH (09:00)
[2020-12-04] MEDS: FOLIC ACID 1 MG TAB PO SCH (09:25)
[2020-12-04] MEDS: MULTIVITAMINS/MINERALS THERAP 1 TAB PO SCH (09:25)
[2020-12-04] MEDS: THIAMINE 100 MG TAB PO SCH (09:25)
[2020-12-04] MEDS: NICOTINE 7 MG/24 HR TRANSDERMAL TD SCH (09:26)
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
[2020-12-04] MEDS ORDERED: SERT50TA29 PO (11:34)
[2020-12-04] MEDS ORDERED: NICO7PA TD (11:34)
== END 2020-12-04 12:58 | disposition home or self-care (01) | DRG 885 ==
LOC: M ED 12:14 → M ED INP 20:12 → M PSY 22:14
PROVIDERS: ADMIT Psychiatry & Neurology Psychiatry; ATTEND Psychiatry & Neurology Psychiatry
DX: F33.1 Major depressive disorder, recurrent, moderate (principal); F10.121 Alcohol abuse with intoxication delirium; R45.851 Suicidal ideations; F41.1 Generalized anxiety disorder; F43.10 Post-traumatic stress disorder, unspecified; F17.210 Nicotine dependence, cigarettes, uncomplicated; F12.10 Cannabis abuse, uncomplicated; Z63.0 Problems in relationship with spouse or partner; Z20.822 Contact with and (suspected) exposure to COVID-19; E66.9 Obesity, unspecified; R74.01 Elevation of levels of liver transaminase levels